=== PATIENT | female | born 1945 | race Caucasian/White ===

== ENCOUNTER 2016-07-21 17:18 | Emergency (ER) | payer MEDICARE ==
[2016-07-21 17:18] VITALS: BMI 31.8
--- NOTE | 2016-07-21 17:30 | EDPRACDOC ---
- History of Present Illness Onset: TODAY HPI: PT COMPLAINS OF FRONTAL, THROBBING, SEVERE HEADACHE, ONSET TODAY, STATES HX OF SAME, STATES THAT WHEN SHE STANDS UP HER KNEES "BUCKLE", STATES STOPPED LYRICA 3 WEEKS AGO DUE TO FREQUENT FALLS, RESTARTED YESTERDAY, HAS BEEN HAVING HEADACHES SINCE STOPPING LYRICA. PT DENIES CP OR SOBR, HAS HAD NAUSEA, NO VOMITING, NO FEVER OR CHILLS. Location: Reports: Frontal Pain Quality: Reports: Severe, Constant, Throbbing, Like Previous Headaches Modifying Factors: worse with: Medication, Exposure to light, Cold therapy, Immobilization, Movement, Rest Prior work up: Reports: CT Relevant History of: Reports: Known Headache disorder Associated Signs and Symptoms: Reports: Frequent Headaches, Nausea/Vomiting, Weakness. Denies: Confusion, Fatigue, Facial Pain, Fever/Chills, Flushing, Loss of Consciousness, Nasal Congestion, Nasal Drainage, Numbness in Legs/Feet, Rash, Seizures, Sinus Infection, Stiff Neck, Vision Changes <Cricket Merino - Last Filed: 07/21/16 17:28> <Jolly Slade - Last Filed: 07/21/16 20:08> - General Information Chief Complaint: Headache Stated Complaint: HEADACHE Time Seen by Provider: 07/21/16 17:19 Home Medications: Home Medications Aspirin (Enteric Coated) [Halfprin] 81 mg PO QHS 07/11/12 Ergocalciferol (Vitamin D2) [Vitamin D2] 50,000 units PO WESA 07/11/12 Omeprazole [Prilosec] 40 mg PO QAM 12/13/13 Albuterol Sulfate 2.5 mg NEB DAILY PRN 11/04/15 Amitriptyline HCl 100 mg PO QHS 11/04/15 Duloxetine HCl [Cymbalta] 90 mg PO DAILY 11/04/15 Fenofibric Acid (Choline) [Trilipix] 135 mg PO DAILY 11/04/15 Fluticasone Propionate [Flovent Hfa-220] 2 puff INH BID PRN 11/04/15 Nitroglycerin 0.4 mg SL Q5MX3 PRN 11/04/15 Pregabalin [Lyrica] 150 mg PO DAILY 11/04/15 Wheat Dextrin [Benefiber] 1 marco antonio PO DAILY 11/04/15 Rivaroxaban [Xarelto] 20 mg PO DAILY 11/07/15 Amiodarone [Cordarone, Pacerone] 100 mg PO DAILY 07/21/16 Ciprofloxacin HCl [Cipro] 500 mg PO BID #14 tab 07/21/16 Levothyroxine [Synthroid, Levoxyl] 75 mcg PO DAILY 07/21/16 Montelukast Sodium [Singulair] 10 mg PO DAILY 07/21/16 Oxycodone HCl [Roxicodone] 5 mg PO Q6H #10 tablet 07/21/16 Allergies/Adverse Reactions: Allergies Allergy/AdvReac Type Severity Reaction Status Date / Time azithromycin Allergy Unknown Rash-Genera Verified 11/07/15 08:45 [From Zithromax Z-Marco Antonio] lized prednisone Allergy Unknown Edema-Gener Verified 11/07/15 08:45 alized prochlorperazine edisylate Allergy Unknown Anaphylaxis Verified 11/07/15 08:45 [From Compazine] * prochlorperazine maleate Allergy Unknown Anaphylaxis Verified 11/07/15 08:45 [From Compazine] * Sulfa (Sulfonamide Allergy Unknown Rash-Genera Verified 11/07/15 08:45 Antibiotics) lized [Sulfa(Sulfonamide Antibiotics)] Mkinnve-Wsi-Icg Reductase Allergy See Verified 11/07/15 08:45 Inhibitor Comments ED Past Medical History - History Reviewed Yes Nurses notes reviewed and agree except as marked - Patient Medical History Neurological History: Reports: Cerebrovascular Accident (2008, RT WEAKNESS) Cardiac History: Reports: Coronary Artery Disease, Atrial Fibrillation, Hypertension, Heart Attack (2001-Cardiac Stents), Cardiac Catheterization, CABG (Feb 2015), Hypercholesterolemia, Valvular Heart Disease (MVP) Respiratory History: Reports: Asthma, COPD, Chronic Bronchitis, Pulmonary Embolism (2001) Musculoskeletal History: Reports: Arthritis, Osteoarthritis Psychological History: Reports: Depression, Anxiety Systemic History: Reports: Anemia (IRON DEFICIENCY), Diabetes. Denies: Cancer Surgical History: Reports: CABG (Feb 2015), Hysterectomy, Cardiac Catheterization, Tonsillectomy/Adnoidectomy - Family Medical History Reports: Hypertension, Diabetes (MOTHER), Cancer, Stroke, Cardiac Disorders - Social Medical History Smoking Status: Former smoker ETOH: None Substance Abuse: None <Cricket Merino - Last Filed: 07/21/16 17:28> EDM Review of Systems - Review of Systems Constitutional: negative: Chills, Fever, Fatigue, Weakness Eyes: negative: Blurred Vision, Double Vision Ears: negative: Drainage Throat: negative: Pain Nose: negative: Congestion, Discharge Respiratory: negative: Cough, Shortness of Breath, Wheezing Cardiovascular: negative: Chest Pain, Palpitations Gastrointestinal: Nausea. negative: Diarrhea, Pain, Vomiting Genitourinary: negative: Dysuria, Frequency Neurological: Headache, Weakness. negative: Dizziness, Numbness Musculoskeletal: No Symptoms Reported Integumentary: No Symptoms Reported <Cricket Merino - Last Filed: 07/21/16 17:28> - Physical Exam Constitutional: Alert (Awake), No apparent distress Oriented to: Time, Person, Place Last recorded Vital Signs: Oxygen Pulse Oxygen Saturation O2 Device Oxygen Flow Rate Fraction of Inspired Oxygen ( FIO2) - HEENT Head: Normal ( normocephalic) Eye Exam: Normal (PERRL, EOMI, Sclera white) Oropharynx: Normal (Pharynx:Moist without exudate,Gums-no swelling) Tympanic Membrane: Normal ENT EAC: Normal TMJ: Normal Nose: No Symptoms Reported (septum midline) Neck: Normal (FROM, trachea at midline) - Respiratory/Cardiovascular Respiratory: Normal - CTA (BBS clear to auscultation without adventitious sounds ) Cardiovascular: Normal (RRR without murmur, gallop or rub) - GI Auscultation: Normal (NABS) Palpation: Normal (Soft,No rebound or guarding, non distended) Tenderness: Non tender Arredondo's Sign: Negative - Musculoskeletal Back: Normal (Non-Tender) Extremities: Normal (Normal tone, Pulses 2+ No cyanosis or edema, FROM) - Integumentary Skin: Normal, Warm, Dry Lymphatics: Normal (no adenopathy) - Neurologic Memory Impaired: Normal Motor Function: Normal (Normal tone, Pulses 2+ No cyanosis or edema, FROM) Cranial Nerve: Normal (CN II-X11 intact sensation, strength 5/5) Cerebellar: Normal Mood Description: Normal Perception: Normal <Cricket Merino - Last Filed: 07/21/16 17:28> - Physical Exam Last recorded Vital Signs: Last Vital Signs Temp 97.7 F 07/21/16 19:00 Pulse 80 07/21/16 19:00 Resp 18 07/21/16 19:00 BP 96/52 L 07/21/16 19:00 Pulse Ox 95 07/21/16 19:00 Oxygen Pulse Oxygen Saturation 95 O2 Device Nasal Cannula Oxygen Flow Rate 2 Fraction of Inspired Oxygen ( FIO2) <Jolly Slade - Last Filed: 07/21/16 20:08> - Results 07/21/16 18:18 07/21/16 18:18 WBC 8.5 xk/uL (3.8-10.8) 07/21/16 18:18 RBC 4.23 xM/uL (4.20-5.40) 07/21/16 18:18 Hgb 12.2 g/dL (12.0-16.0) 07/21/16 18:18 Hct 37.4 % (36-47) 07/21/16 18:18 MCV 89 fL (81-99) 07/21/16 18:18 MCH 28.8 pg (27-32) 07/21/16 18:18 MCHC 32.6 g/dl (33-36) L 07/21/16 18:18 RDW 17.6 % (11.5-14.5) H 07/21/16 18:18 Plt Count 225 xk/uL (130-400) 07/21/16 18:18 MPV 9.9 fL (7.4-10.4) 07/21/16 18:18 Neut % (Auto) 48.4 % (45-76) 07/21/16 18:18 Lymph % (Auto) 30.3 % (17-44) 07/21/16 18:18 O'Brien % (Auto) 8.7 % (3-10) 07/21/16 18:18 Eos % (Auto) 11.1 % (0-5) H 07/21/16 18:18 Baso % (Auto) 1.5 % (0-2) 07/21/16 18:18 Absolute Neuts (auto) 4.08 xk/uL (1.7-8.2) 07/21/16 18:18 Absolute Lymphs (auto) 2.55 xk/uL (0.65-4.75) 07/21/16 18:18 Sodium 142 mEq/L (137-146) 07/21/16 18:18 Potassium 3.9 mEq/L (3.5-5.1) 02/01/17 18:18 Chloride 106 mEq/L (98-107) 07/21/16 18:18 Carbon Dioxide 26 mMOL/L (22-33) 07/21/16 18:18 Anion Gap 14 mEq/L (8-16) 07/21/16 18:18 BUN 19 MG/DL (7-17) H 07/21/16 18:18 Creatinine 2.20 MG/DL (0.52-1.04) H 07/21/16 18:18 Estimated GFR (MDRD) 22 mL/min (>=60) L 07/21/16 18:18 Glucose 102 mg/dL (70-99) H 07/21/16 18:18 Calculated Osmolality 275 MOs/Kg (270-290) 07/21/16 18:18 Calcium 8.8 MG/DL (8.4-10.2) 07/21/16 18:18 Corrected Calcium 9.2 MG/DL (8.4-10.2) 07/21/16 18:18 Total Bilirubin 0.4 MG/DL (0.2-1.3) 07/21/16 18:18 AST 22 IU/L (14-36) 07/21/16 18:18 ALT 22 IU/L (9-52) 07/21/16 18:18 Alkaline Phosphatase 47 IU/L (55-165) L 07/21/16 18:18 Total Protein 6.7 G/DL (6.3-8.2) 07/21/16 18:18 Albumin 3.6 G/DL (3.5-5.0) 07/21/16 18:18 Urine Color Yellow 07/21/16 18:00 Urine Clarity Cldy 07/21/16 18:00 Urine pH 5.0 (5.0-8.0) 07/21/16 18:00 Ur Specific Loring 1.010 (1.003-1.035) 07/21/16 18:00 Urine Protein 1+ (NEG/TRACE) H 07/21/16 18:00 Urine Glucose (UA) Neg (NEGATIVE) 07/21/16 18:00 Urine Ketones Neg (NEGATIVE) 07/21/16 18:00 Urine Occult Blood Neg (NEG/TRACE) 07/21/16 18:00 Urine Nitrite Pos (NEGATIVE) H 07/21/16 18:00 Urine Bilirubin Neg (NEGATIVE) 07/21/16 18:00 Urine Urobilinogen <2.0 MG/DL (0-1) 07/21/16 18:00 Ur Leukocyte Esterase 2+ (NEGATIVE) H 07/21/16 18:00 Urine RBC 10-20 (0-5) H 07/21/16 18:00 Urine WBC Tntc (0-5) H 07/21/16 18:00 Urine WBC Clumps Present (NONE) H 07/21/16 18:00 Ur Epithelial Cells 3+ 07/21/16 18:00 Urine Bacteria 3+ (NEG/FEW) H 07/21/16 18:00 Urine Mucus Sm amt (NEG/OCC) 07/21/16 18:00 Lab Results 07/21/16 07/21/16 07/21/16 18:18 18:18 18:00 WBC 8.5 RBC 4.23 Hgb 12.2 Hct 37.4 MCV 89 MCH 28.8 MCHC 32.6 L RDW 17.6 H Plt Count 225 MPV 9.9 Neut % (Auto) 48.4 Lymph % (Auto) 30.3 O'Brien % (Auto) 8.7 Eos % (Auto) 11.1 H Baso % (Auto) 1.5 Absolute Neuts (auto) 4.08 Absolute Lymphs (auto) 2.55 Sodium 142 Potassium 3.9 Chloride 106 Carbon Dioxide 26 Anion Gap 14 BUN 19 H Creatinine 2.20 H Estimated GFR (MDRD) 22 L Glucose 102 H Calculated Osmolality 275 Calcium 8.8 Corrected Calcium 9.2 Total Bilirubin 0.4 AST 22 ALT 22 Alkaline Phosphatase 47 L Total Protein 6.7 Albumin 3.6 Urine Color Yellow Urine Clarity Cldy Urine pH 5.0 Ur Specific Loring 1.010 Urine Protein 1+ H Urine Glucose (UA) Neg Urine Ketones Neg Urine Occult Blood Neg Urine Nitrite Pos H Urine Bilirubin Neg Urine Urobilinogen <2.0 Ur Leukocyte Esterase 2+ H Urine RBC 10-20 H Urine WBC Tntc H Urine WBC Clumps Present H Ur Epithelial Cells 3+ Urine Bacteria 3+ H Urine Mucus Sm amt - Additional Information I ASKED PT ABOUT KIDNEY FCT AND SHE SAID THAT IT IS CHRONIC. <Jolly Slade - Last Filed: 07/21/16 20:08> <Cricket Merino - Last Filed: 07/21/16 17:28> Decision Time to Discharge: 20:01 - Departure Yes I personally saw and evaluated the patient. Disposition: Home Education/Counseling Given To: Patient, Family Member Education/Counseling Given Regarding: Diagnosis, Treatment, Follow Up <DozierJolly - Last Filed: 07/21/16 20:08> - Departure Condition: Fair Final Diagnosis: Headache, UTI (urinary tract infection) Instructions: Urinary Tract Infection in Women (ED), Dysuria Referrals: None,No Provider [NonStaff] - One Week Prescriptions: New Ciprofloxacin HCl [Cipro] 500 mg PO BID #14 tab Oxycodone HCl [Roxicodone] 5 mg PO Q6H #10 tablet No Action Aspirin (Enteric Coated) [Halfprin] 81 mg PO QHS Ergocalciferol (Vitamin D2) [Vitamin D2] 50,000 units PO WESA Omeprazole [Prilosec] 40 mg PO QAM Wheat Dextrin [Benefiber] 1 marco antonio PO DAILY Albuterol Sulfate 2.5 mg NEB DAILY PRN PRN Reason: Air Hunger Amitriptyline HCl 100 mg PO QHS Pregabalin [Lyrica] 150 mg PO DAILY Fenofibric Acid (Choline) [Trilipix] 135 mg PO DAILY Duloxetine HCl [Cymbalta] 90 mg PO DAILY Fluticasone Propionate [Flovent Hfa-220] 2 puff INH BID PRN PRN Reason: Shortness Of Breath Nitroglycerin 0.4 mg SL Q5MX3 PRN PRN Reason: Pain Rivaroxaban [Xarelto] 20 mg PO DAILY Montelukast Sodium [Singulair] 10 mg PO DAILY Levothyroxine [Synthroid, Levoxyl] 75 mcg PO DAILY Amiodarone [Cordarone, Pacerone] 100 mg PO DAILY
[2016-07-21] MEDS ORDERED: NS 1,000 ML IV ONE (17:31)
[2016-07-21] MEDS ORDERED: METOCLOPRAMIDE 10 MG/2 ML VIAL IV ONE (17:31)
[2016-07-21] MEDS ORDERED: DIPHENHYDRAMINE 50 MG/ML VIAL IV ONE (17:31)
[2016-07-21 18:28] LABS: LEUKOCYTES/URINE 2+ (NEGATIVE); URINE OCCULT BLOOD NEG (NEG/TRACE); WBC/URINE TNTC (0-5)
[2016-07-21 18:28] LABS: AUTOMATED BASOPHIL 1.5 % (0-2); AUTOMATED EOSINOPHIL 11.1 % (0-5); AUTOMATED LYMPH 30.3 % (17-44); AUTOMATED MONOCYTE 8.7 % (3-10); AUTOMATED NEUTROPHIL 48.4 % (45-76); MPV 9.9 fL (7.4-10.4)
[2016-07-21 18:29] LABS: NITRITE/URINE POS (NEGATIVE)
[2016-07-21 18:41] LABS: BLOOD UREA NITROGEN 19 MG/DL (7-17); CALC CORRECTED 9.2 MG/DL (8.4-10.2); CALCIUM 8.8 MG/DL (8.4-10.2); CALCULATED OSMOLALITY 275 MOs/Kg (270-290); CHLORIDE 106 mEq/L (98-107); GLUCOSE 102 mg/dL (70-99); SODIUM LEVEL 142 mEq/L (137-146); TOTAL PROTEIN 6.7 G/DL (6.3-8.2)
[2016-07-21] MEDS ORDERED: KETOROLAC TROMETH 30 MG/ML VIAL IV ONE (18:53)
[2016-07-21] MEDS ORDERED: CEFTRIAXONE 1 GM in D5W 100 ML IV ONE (18:54)
[2016-07-21 19:43] VITALS: TEMP 97.7
[2016-07-21 20:09] VITALS: BP 93/55; PULSE 74
== END 2016-07-21 20:06 | disposition home or self-care (01) ==
LOC: ED 17:18
DX: N39.0 Urinary tract infection, site not specified (principal); R51 Headache
CPT/HCPCS: 36415; 80053; 81001; 85025; 96361; 96365; 96375; 99285; J0696; J1200; J1885; J2765; J7060